=== PATIENT | female | born 1965 | race Caucasian/White ===

== ENCOUNTER 2020-08-14 23:14 | Observation (INO) | payer BC, OTHER ==
[~2020-08-14] VITALS: Ht 170.2 cm; Wt 72.1 kg
--- NOTE | 2020-08-14 23:27 | NUR ---
Patient BIBA from [facility] for new onset unstable angina. Patient arrived to their facility for CP since 1000; states it is worse with exertion. Patient has a hx of afib with an ablation in 2010; patient has not had problems since then. [employer] patient received Tylenol, ASA, Zofran, Morphine, Dilaudid, Nitro, and Fentanyl. Patient's troponin and COVID test were negative. Currently patient c/o left side chest pressure which radiates across chest to right arm and back. Patient denies nausea, SOB, or dizziness. Patient is in NAD. REspirations even and unlabored.
[2020-08-14] MEDS ORDERED: SUMA25TA3 PO (23:33)
[2020-08-14] MEDS ORDERED: AMIT10TA PO (23:33)
[2020-08-15] MEDS ORDERED: SODIUM CHLORIDE FLUSH 10ML SYR IVF ONE
[2020-08-15] MEDS ORDERED: ONDANSETRON 2MG/ML, 2ML IVPush ONE
[2020-08-15] MEDS ORDERED: MORPHINE SULFATE 4 MG/ML, 1ML IVPush PRN
[2020-08-15 00:15] LABS: BASOPHILS % (AUTO) 0 % (0-1); EOSINOPHILS % (AUTO) 0 % (1-7); LYMPHOCYTES % (AUTO) 5 % (22-44); MEAN CORPUSCULAR HEMOGLOBIN 30.4 pg (27.0-34.8); MEAN CORPUSCULAR HGB CONC 33.8 g/dL (32.4-35.8); MEAN PLATELET VOLUME 7.6 fL (7.4-10.4); MONOCYTES % (AUTO) 6 % (2-9); NEUTROPHILS % (AUTO) 88 % (42-75); PLATELET COUNT 146 x10^3/uL (130-400); RED BLOOD COUNT 4.75 x10^6/uL (3.82-5.3); RED CELL DISTRIBUTION WIDTH 13.3 % (9.6-15.2)
--- NOTE | 2020-08-15 00:15 | NUR ---
Report given to MARIANELA Crowder. Patient to be transferred to room 524.
[2020-08-15 00:22] LABS: ALANINE AMINOTRANSFERASE 42 U/L (12-78); ALBUMIN 3.6 g/dL (3.4-5.0); ANION GAP 5 mmol/L (5-15); CALCIUM 8.2 mg/dL (8.5-10.1); CHLORIDE 107 mmol/L (98-107); CREATININE 0.86 mg/dL (0.55-1.02)
[2020-08-15 00:26] LABS: ALKALINE PHOSPHATASE 85 U/L (45-117); BILIRUBIN,TOTAL 0.6 mg/dL (0.2-1.0); TROPONIN I < 0.015 ng/mL (0.000-0.045)
[2020-08-15 00:28] VITALS: BP 111/74
[2020-08-15] MEDS ORDERED: ATORVASTATIN 80 MG TABLET PO SCH (00:30)
[2020-08-15] MEDS ORDERED: NITROGLYCERIN 0.4 MG BOTTLE (25 TABS) SL PRN (00:30)
[2020-08-15 00:37] LABS: MD SCAN
[2020-08-15 00:57] LABS: CHOL/HDL RATIO 2.7; LDL/HDL RATIO 1.6 (0.5-3.0)
[2020-08-15 03:44] LABS: TROPONIN I < 0.015 ng/mL (0.000-0.045)
[2020-08-15] MEDS: morphine SULFATE 10 MG/ML, 1ML IV PRN ×2 (05:03→11:43)
[2020-08-15] MEDS: ACETAMINOPHEN 325 MG TABLET PO PRN ×2 (05:03→11:39)
[2020-08-15 07:03] LABS: TROPONIN I < 0.015 ng/mL (0.000-0.045)
[2020-08-15 07:09] VITALS: BP 96/64
[2020-08-15] MEDS ORDERED: ENOXAPARIN 40 MG/0.4 ML SQ SCH (08:00)
[2020-08-15] MEDS ORDERED: SODIUM CHLORIDE FLUSH 10ML SYR IVF SCH (09:00)
[2020-08-15] MEDS ORDERED: REGADENOSON 0.4 MG/5 ML SYRINGE ONE (09:09)
[2020-08-15 12:55] VITALS: BP 103/68
[2020-08-15] MEDS ORDERED: SUMATRIPTAN 25 MG TABLET PO PRN (13:00)
[2020-08-15] MEDS ORDERED: ASPI-1026 PO (13:52)
[2020-08-15] MEDS ORDERED: AMITRIPTYLINE 25 MG TABLET PO SCH (21:00)
[2020-08-16] MEDS ORDERED: ASPIRIN 325 MG TABLET EC PO SCH (06:00)
== END 2020-08-15 15:40 | disposition home or self-care (01) ==
LOC: ED 23:45 → INTOOBSV 08-15 00:16 → EDIP 08-15 00:16 → 5SO 08-15 00:31 → DCLOUNGE 08-15 15:26
PROVIDERS: ADMIT Family Medicine; ATTEND Internal Medicine
DX: R07.89 Other chest pain (principal); I48.91 Unspecified atrial fibrillation; G43.909 Migraine, unspecified, not intractable, without status migrainosus; E78.5 Hyperlipidemia, unspecified; Z88.0 Allergy status to penicillin; Z79.899 Other long term (current) drug therapy; Z79.82 Long term (current) use of aspirin
CPT/HCPCS: 36415; 71045; 78452; 80053; 80061; 83880; 84484; 85025; 93005; 93017; 96372; 96374; 96376; 99285; A9502; G0378; J1650; J2270; J2785